=== PATIENT | female | born 1960 | race Caucasian/White ===

== ENCOUNTER 2020-08-27 01:49 | Outpatient (CLI) | payer MEDICAID, SELFPAY ==
--- NOTE | 2020-08-27 | DI.US_ITS ---
EXAM: US THYROID CLINICAL HISTORY: THYROID NODULE, E04.1,F/U CT SIM SHOWING THYROID NODULE. TECHNIQUE: Ultrasound thyroid performed using standard protocol. COMPARISON: No exams were available for comparison FINDINGS: Both thyroid lobes exhibit normal size, as does the isthmus. Right thyroid lobe measures 1.2 cm AP x 1 1 centimeters wide by 4.6 centimeters craniocaudal Left thyroid lobe measures 0.9 cm AP by 0.9 cm wide by 0.4 cm craniocaudal. Isthmus thickness is 2 millimeters. In the right thyroid lobe there is a solitary small 5 x 4 x 3 millimeter nodule. This nodule is nitin d mildly hypoechoic relative to the gland tissue. It is wider than taller in the transverse plane. It exhibits smooth margins and does not contain internal echogenic foci. Total 3 points/TR 3 There are no focal findings in the isthmus. In the left thyroid lobe there is a solitary nodule located inferiorly which measures 0.6 x 0.6 x 0.7 cm. This nodule is solid, well-defined with smooth margins, not taller than wider, d oes not contain echogenic foci, and minimally hypoechoic compared to the glandular tissue. Total 3 p oint/TR 3 IMPRESSION: 1. Solitary nodule in each thyroid lobe, both TR 3. Recommend repeat ultrasound in 6 months 2. No obvious lymphadenopathy evident on these images. 3. The thyroid gland is not enlarged. DATA REPOSITORY: . It is wider than taller
== END 2020-08-27 02:09 ==
PROVIDERS: PCP Physician Assistant Medical; Visit Provider Radiology Radiation Oncology
DX: E04.1 Nontoxic single thyroid nodule (principal)
CPT/HCPCS: 76536